=== PATIENT | male | born 1970 | race Caucasian/White ===

== ENCOUNTER 2019-01-13 22:10 | Emergency (ER) | payer BC ==
[~2019-01-13] VITALS: Ht 177.8 cm; Wt 97.5 kg
[2019-01-13 22:15] VITALS: BP 137/82
[2019-01-13] MEDS ORDERED: LIDOCAINE 1%-EPI 1:200,000 SDV 10 ML VIAL IJ ONE (22:30)
[2019-01-13] MEDS ORDERED: LIDOCAINE 1%-EPI 1:100,000 20 ML VIAL ONE (22:31)
[2019-01-13] MEDS ORDERED: TDAP [DIPH/PERTUSSIS/TET] 0.5 ML VIAL IM ONE (23:00)
== END 2019-01-13 23:32 | disposition home or self-care (01) ==
LOC: ER 22:15
DX: S91.112A Laceration without foreign body of left great toe without damage to nail, initial encounter (principal); Z98.890 Other specified postprocedural states; W25.XXXA Contact with sharp glass, initial encounter; Y93.89 Activity, other specified; Y92.89 Other specified places as the place of occurrence of the external cause; Y99.8 Other external cause status
CPT/HCPCS: 12002; 99283; A6403; J3490 ×2

== ENCOUNTER 2024-12-29 06:52 | Inpatient (IN) | payer BC, MEDICARE, OTHER ==
[~2024-12-29] VITALS: Ht 175.3 cm; Wt 92.5 kg
[2024-12-29] MEDS ORDERED: ONDANSETRON HCL/PF 4 MG/2 ML VIAL ONE (07:36)
[2024-12-29] MEDS: ONDANSETRON HCL/PF 4 MG/2 ML VIAL IVP ONE (07:41)
[2024-12-29] MEDS: IV NS 0.9% 500 ML BAG IV ONE (07:41)
[2024-12-29 07:45] LABS: PLATELET COUNT (AUTO) 331 K/uL (150-450); RED BLOOD CELL COUNT(AUTO) 5.00 MIL/uL (4.5-6.0); RED CELL DISTRIBUTION WIDTH 12.4 % (11.5-15.0); WHITE BLOOD COUNT (AUTO) 11.8 K/uL (4.3-11.0)
[2024-12-29 07:51] LABS: CALCIUM, SERUM 9.8 mg/dL (8.5-10.1); CREATININE 1.1 mg/dL (0.6-1.3); SODIUM SERUM 141.0 mmol/L (136-145); UREA NITROGEN, BLOOD 16.0 mg/dL (7-18)
[2024-12-29 07:57] LABS: ASPARTATE AMINOTRANSFERASE 16.0 U/L (15-37); TOTAL PROTEIN, SERUM 7.5 g/dL (6.4-8.2)
[2024-12-29] MEDS ORDERED: MORPHINE SULFATE INJ 2 MG/ML DISP.SYRIN IV PRN (08:00)
[2024-12-29] MEDS ORDERED: ZOLPIDEM TARTRATE 5 MG TABLET PO PRN (08:00)
[2024-12-29] MEDS ORDERED: ONDANSETRON HCL/PF 4 MG/2 ML VIAL IVP PRN (08:00)
[2024-12-29] MEDS ORDERED: Z GUARD REMEDY 4 OZ OINT TP PRN (08:00)
[2024-12-29] MEDS ORDERED: MAG HYDROX/AL HYDROX/SIMETH 30 ML UDC PO PRN (08:00)
[2024-12-29] MEDS ORDERED: ACETAMINOPHEN 325 MG TABLET PO PRN (08:00)
[2024-12-29 08:01] LABS: INR 1.01 (0.91-1.10)
[2024-12-29] MEDS: PANTOPRAZOLE 80 MG in IV NS 0.9% 100 ML IV ONE (08:05)
[2024-12-29] MEDS: PANTOPRAZOLE 80 MG in IV NS 0.9% 500 ML IV ONE (08:06)
[2024-12-29 09:00] VITALS: BP 149/92; TEMP 98.1; O2SAT 95
[2024-12-29] MEDS: PANTOPRAZOLE 40 MG VIAL IV SCH (09:00)
[2024-12-29] MEDS ORDERED: BACL10TA PO (10:07)
[2024-12-29] MEDS ORDERED: LEVE100023 PO (10:07)
[2024-12-29] MEDS ORDERED: ESCI10TA PO (10:07)
[2024-12-29] MEDS ORDERED: ATOR10TA PO (10:07)
[2024-12-29] MEDS: LEVETIRACETAM (500MG) 1,000 MG in IV NS 0.9% 90 ML IV SCH (10:48)
[2024-12-29] MEDS: IV NS 0.9% 1,000 ML IV PRN (10:48)
[2024-12-29 16:00] VITALS: BP 155/91; TEMP 98.2; O2SAT 94
[2024-12-30 07:44] LABS: PLATELET COUNT (AUTO) 302 K/uL (150-450); RED BLOOD CELL COUNT(AUTO) 4.80 MIL/uL (4.5-6.0); RED CELL DISTRIBUTION WIDTH 12.6 % (11.5-15.0); WHITE BLOOD COUNT (AUTO) 10.7 K/uL (4.3-11.0)
[2024-12-30 08:00] VITALS: BP 133/91; TEMP 101.1; O2SAT 97
[2024-12-30 08:16] LABS: CALCIUM, SERUM 8.9 mg/dL (8.5-10.1); CREATININE 0.9 mg/dL (0.6-1.3); PHOSPHORUS 2.6 mg/dL (2.5-4.9); SODIUM SERUM 138.0 mmol/L (136-145); UREA NITROGEN, BLOOD 17.0 mg/dL (7-18)
[2024-12-30 08:24] LABS: LDL 98.0 mg/dL (0-99)
[2024-12-30] MEDS ORDERED: DIATR MEGLU/DIATRIZOATE SODIUM 120 ML BOTTLE (GASTROGRAPHIN) ONE (09:33)
[2024-12-30] MEDS: REMDESIVIR (CHARGED) 200 MG, *LOADING DOSE 1 EA in IV NS 0.9% 210 ML IV ONE (12:16)
[2024-12-30] MEDS: ACETAMINOPHEN 650 MG/SUPP.RECT RC PRN (16:49)
[2024-12-30 20:00] VITALS: BP 155/95; TEMP 100.6; O2SAT 96
[2024-12-31 04:00] VITALS: BP 169/80; TEMP 99.5; O2SAT 97
[2024-12-31 08:00] VITALS: BP 139/99; TEMP 99; O2SAT 94
[2024-12-31] MEDS ORDERED: hydrALAZINE HCL IV 20 MG VIAL IV PRN (08:00)
[2024-12-31 09:21] LABS: PLATELET COUNT (AUTO) 299 K/uL (150-450); RED BLOOD CELL COUNT(AUTO) 5.36 MIL/uL (4.5-6.0); RED CELL DISTRIBUTION WIDTH 13.1 % (11.5-15.0); WHITE BLOOD COUNT (AUTO) 14.4 K/uL (4.3-11.0)
[2024-12-31 09:48] LABS: INR 1.11 (0.91-1.10)
[2024-12-31 09:49] LABS: CALCIUM, SERUM 9.8 mg/dL (8.5-10.1); CREATININE 1.0 mg/dL (0.6-1.3); SODIUM SERUM 144.0 mmol/L (136-145); UREA NITROGEN, BLOOD 32.0 mg/dL (7-18)
[2024-12-31 09:54] LABS: ASPARTATE AMINOTRANSFERASE 25.0 U/L (15-37); TOTAL PROTEIN, SERUM 7.6 g/dL (6.4-8.2)
[2024-12-31 12:00] VITALS: BP 139/99; TEMP 99; O2SAT 94
[2024-12-31] MEDS: REMDESIVIR (CHARGED) 100 MG in IV NS 0.9% 80 ML IV SCH (12:41)
[2024-12-31 22:00] VITALS: BP 139/87; TEMP 97.3; O2SAT 93
[2025-01-01 04:00] VITALS: BP 138/85; TEMP 98.2; O2SAT 99
[2025-01-01 08:06] LABS: CALCIUM, SERUM 8.6 mg/dL (8.5-10.1); CREATININE 0.7 mg/dL (0.6-1.3); SODIUM SERUM 149.0 mmol/L (136-145); UREA NITROGEN, BLOOD 27.0 mg/dL (7-18)
[2025-01-01 08:12] LABS: ASPARTATE AMINOTRANSFERASE 20.0 U/L (15-37); TOTAL PROTEIN, SERUM 6.3 g/dL (6.4-8.2)
[2025-01-01 08:21] LABS: PLATELET COUNT (AUTO) 255 K/uL (150-450); RED BLOOD CELL COUNT(AUTO) 4.63 MIL/uL (4.5-6.0); RED CELL DISTRIBUTION WIDTH 13.5 % (11.5-15.0); WHITE BLOOD COUNT (AUTO) 8.9 K/uL (4.3-11.0)
[2025-01-01 08:30] LABS: INR 1.05 (0.91-1.10)
[2025-01-01 12:00] VITALS: BP 135/82; TEMP 98.5; O2SAT 98
[2025-01-01 16:00] VITALS: BP 142/83; TEMP 98.4; O2SAT 96
[2025-01-01] MEDS: IV D5/ 0.9% NACL 1,000 ML IV PRN (16:04)
[2025-01-01 20:00] VITALS: BP 129/91; TEMP 97.7; O2SAT 97
[2025-01-01] MEDS ORDERED: LEVETIRACETAM (500MG) 500 MG/5 ML VIAL IV ONE (21:29)
[2025-01-02] VITALS: BP 149/91; TEMP 97.3; O2SAT 100
[2025-01-02 04:00] VITALS: BP 122/96; TEMP 98.6; O2SAT 97
[2025-01-02 08:00] VITALS: BP 131/88; TEMP 97.1; O2SAT 97
[2025-01-02 08:28] LABS: INR 1.14 (0.91-1.10)
[2025-01-02 08:33] LABS: CALCIUM, SERUM 8.5 mg/dL (8.5-10.1); CREATININE 0.5 mg/dL (0.6-1.3); SODIUM SERUM 138.0 mmol/L (136-145); UREA NITROGEN, BLOOD 16.0 mg/dL (7-18)
[2025-01-02 09:49] LABS: TOTAL PROTEIN, SERUM 6.1 g/dL (6.4-8.2)
[2025-01-02 09:50] LABS: ASPARTATE AMINOTRANSFERASE 34.0 U/L (15-37)
[2025-01-02 16:00] VITALS: BP 131/92; TEMP 97.6; O2SAT 96
[2025-01-02] MEDS: POTASSIUM CHLORIDE 20 MEQ POWDER PACKET PO SCH (16:05)
[2025-01-02 20:00] VITALS: BP 126/88; TEMP 98.6; O2SAT 95
[2025-01-03 04:00] VITALS: BP 129/86; TEMP 98.8; O2SAT 95
[2025-01-03 07:44] LABS: INR 1.11 (0.91-1.10)
[2025-01-03 08:00] VITALS: BP 122/88; TEMP 98.1; O2SAT 100
[2025-01-03 08:30] LABS: ASPARTATE AMINOTRANSFERASE 44.0 U/L (15-37); CALCIUM, SERUM 9.2 mg/dL (8.5-10.1); CREATININE 0.8 mg/dL (0.6-1.3); SODIUM SERUM 143.0 mmol/L (136-145); TOTAL PROTEIN, SERUM 6.2 g/dL (6.4-8.2); UREA NITROGEN, BLOOD 11.0 mg/dL (7-18)
[2025-01-03 16:00] VITALS: BP 123/91; TEMP 98.1; O2SAT 98
[2025-01-04] VITALS: BP 123/91; TEMP 98.1; O2SAT 98
[2025-01-04 07:08] LABS: ASPARTATE AMINOTRANSFERASE 25.0 U/L (15-37); CALCIUM, SERUM 9.5 mg/dL (8.5-10.1); CREATININE 0.8 mg/dL (0.6-1.3); SODIUM SERUM 141.0 mmol/L (136-145); TOTAL PROTEIN, SERUM 6.6 g/dL (6.4-8.2); UREA NITROGEN, BLOOD 14.0 mg/dL (7-18)
[2025-01-04 07:36] LABS: INR 1.05 (0.91-1.10)
[2025-01-04 08:00] VITALS: BP 127/91; TEMP 98.6; O2SAT 94
[2025-01-04 08:32] VITALS: BP 127/91; TEMP 98.6; O2SAT 92
[2025-01-04] MEDS: POTASSIUM CHLORIDE 20 MEQ TAB.PRT.SR PO SCH (10:39)
[2025-01-04] MEDS: BACLOFEN (10 MG) 10 MG TABLET PO SCH (12:46)
[2025-01-04 16:09] VITALS: BP 126/89; TEMP 97.7; O2SAT 97
[2025-01-04 16:29] VITALS: BP 126/89; TEMP 97.7; O2SAT 97
[2025-01-04] MEDS: LEVETIRACETAM (250 MG) 250 MG TABLET PO SCH (21:16)
[2025-01-05] VITALS: BP 131/96; TEMP 98; O2SAT 96
[2025-01-05 08:00] VITALS: BP 134/96; TEMP 97.9; O2SAT 91
[2025-01-05 08:11] LABS: CALCIUM, SERUM 9.4 mg/dL (8.5-10.1); CREATININE 1.0 mg/dL (0.6-1.3); SODIUM SERUM 140.0 mmol/L (136-145); UREA NITROGEN, BLOOD 15.0 mg/dL (7-18)
[2025-01-05] MEDS: PANTOPRAZOLE 40 MG TABLET.DR PO SCH (08:27)
[2025-01-05] MEDS: ATORVASTATIN 10 MG TABLET PO SCH (08:27)
[2025-01-05] MEDS: ESCITALOPRAM OXALATE (10 MG) 10 MG TABLET PO SCH (08:28)
[2025-01-05 16:00] VITALS: BP 125/100; TEMP 97.8; O2SAT 95
[2025-01-05] MEDS: HYDROCODONE/APAP 5/325MG TABLET PO PRN (20:48)
[2025-01-06] VITALS: BP 121/88; TEMP 97.9; O2SAT 95
[2025-01-06 07:30] LABS: CALCIUM, SERUM 9.7 mg/dL (8.5-10.1); CREATININE 1.0 mg/dL (0.6-1.3); SODIUM SERUM 141.0 mmol/L (136-145); UREA NITROGEN, BLOOD 16.0 mg/dL (7-18)
[2025-01-06 08:00] VITALS: BP 124/90; TEMP 97.5; O2SAT 93
[2025-01-06] MEDS: POTASSIUM CHLORIDE 20 MEQ POWDER PACKET PO ONE (12:29)
[2025-01-06 16:00] VITALS: BP 127/87; TEMP 98.1; O2SAT 93
[2025-01-06 20:00] VITALS: BP 133/86; TEMP 98.2; O2SAT 95
[2025-01-07] VITALS: BP 133/86; TEMP 98.2; O2SAT 95
[2025-01-07] MEDS: MAGNESIUM HYDROXIDE 30 ML UDC PO PRN (02:17)
[2025-01-07 04:00] VITALS: BP 123/90; TEMP 98.6; O2SAT 96
[2025-01-07 07:19] LABS: CALCIUM, SERUM 9.3 mg/dL (8.5-10.1); CREATININE 0.8 mg/dL (0.6-1.3); SODIUM SERUM 142.0 mmol/L (136-145); UREA NITROGEN, BLOOD 14.0 mg/dL (7-18)
[2025-01-07 08:00] VITALS: BP 131/92; TEMP 97.9; O2SAT 96
[2025-01-07 16:00] VITALS: BP 122/87; TEMP 97.2; O2SAT 94
[2025-01-08 04:00] VITALS: BP 128/90; TEMP 98.2; O2SAT 96
[2025-01-08 08:00] VITALS: BP 125/83; TEMP 98.5; O2SAT 94
[2025-01-08 08:02] LABS: CALCIUM, SERUM 9.3 mg/dL (8.5-10.1); CREATININE 0.8 mg/dL (0.6-1.3); SODIUM SERUM 138.0 mmol/L (136-145); UREA NITROGEN, BLOOD 16.0 mg/dL (7-18)
[2025-01-08 12:00] VITALS: BP 125/83; TEMP 98.5; O2SAT 94
== END 2025-01-08 13:45 | DRG 388 ==
LOC: ER 06:54 → MED 08:48 → MEDSG1 20:33
PROVIDERS: ADMIT Nurse Practitioner Acute Care; ATTEND Nurse Practitioner Acute Care
PROC: XW033E5 Introduction of Remdesivir Anti-infective into Peripheral Vein, Percutaneous Approach, New Technology Group 5 (ICD-10-PCS; principal; 2024-12-30)
DX: K56.609 Unspecified intestinal obstruction, unspecified as to partial versus complete obstruction (principal); U07.1 COVID-19; G40.909 Epilepsy, unspecified, not intractable, without status epilepticus; Z68.29 Body mass index [BMI] 29.0-29.9, adult; E66.9 Obesity, unspecified; Z86.73 Personal history of transient ischemic attack (TIA), and cerebral infarction without residual deficits; Z66 Do not resuscitate; Z92.3 Personal history of irradiation; Z92.21 Personal history of antineoplastic chemotherapy; Z85.841 Personal history of malignant neoplasm of brain; E78.5 Hyperlipidemia, unspecified; D72.829 Elevated white blood cell count, unspecified; Z74.01 Bed confinement status; Z98.890 Other specified postprocedural states; M62.422 Contracture of muscle, left upper arm
CPT/HCPCS: 36415; 71045-TC; 74018; 74250-TC; 80048-TC; 80061-TC; 80076-TC; 82728-TC; 83735-TC; 84100-TC; 84484-TC; 85025-TC; 85378-TC; 85610-TC; 85730-TC; 86140-TC; 86850-TC; 97110-TC; 97112-TC; 97530-TC; 97535-TC; A4216; A4223; G0378; J1953; J2048; J2405; J2470; J3490; J7030; J7040; J7042; J7050; Q9963